=== PATIENT | male | born 1955 | race Caucasian/White ===

== ENCOUNTER 2022-09-11 01:56 | Emergency (ER) | payer MEDICARE ==
[2022-09-11 02:04] VITALS: BP 147/90; PULSE 98; RESP 18; TEMP 97.7
--- NOTE | 2022-09-11 02:43 | CT ---
EXAM: CT Head Without Intravenous Contrast CLINICAL HISTORY: ITS.REASON CT Reason: trauma TECHNIQUE: Axial computed tomography images of the head/brain without intravenous contrast. CTDI is 45.2 mGy and DLP is 1163.7 mGy-cm. This CT exam was performed using one or more of the following dose reduction techniques: automated exposure control, adjustment of the mA and/or kV according to patient size, and/or use of iterative reconstruction technique. COMPARISON: No previous studies. FINDINGS: Artifacts: Motion artifact limits evaluation. Brain: Age-related atrophy and small vessel disease of aging. No hemorrhage. No abnormal extra-axial collection is noted. Midline shift: Midline anatomy is unremarkable. Ventricles: Unremarkable. No ventriculomegaly. Bones/joints: Calvarium is within normal limits. No acute fracture. Soft tissues: A 6.5 x 1.1 cm right parietal scalp hematoma is noted. Sinuses: Mild chronic ethmoid sinusitis. Mastoid air cells: Mastoid air cells are well pneumatized. IMPRESSION: 1. Right parietal scalp hematoma. 2. Age-related atrophy. 3. No acute intracranial pathology. 4. If there is concern for etiology such as early acute lacunar infarct, MRI imaging of the brain with diffusion-weighted sequences should be performed. EXAM: CT Cervical Spine Without Intravenous Contrast CLINICAL HISTORY: ITS.REASON CT Reason: trauma TECHNIQUE: Axial computed tomography images of the cervical spine without intravenous contrast. CTDI is 15.3 mGy and DLP is 457.2 mGy-cm. This CT exam was performed using one or more of the following dose reduction techniques: automated exposure control, adjustment of the mA and/or kV according to patient size, and/or use of iterative reconstruction technique. COMPARISON: No previous studies. FINDINGS: Vertebrae: Dextroscoliosis. There is straightening and reversal of the curvature of the cervical spine suggestive of muscle spasm. There is minimal grade 1 anterolisthesis of C2 on C3 vertebrae. There is grade 1 retrolisthesis of C4 upon C5 vertebral body. There is grade 1 anterolisthesis of C5 on C6 vertebral body. Cervical and visualized thoracic vertebral bodies are unremarkable. Spinous processes are unremarkable. There is a normal relationship of C1 and C2. Transaxial images of the cervical spine reveals multilevel posterior facet hypertrophy and disc osteophyte complexes. No acute fracture. Discs/spinal canal/neural foramina: Moderate to severe degenerative disc disease. No spinal canal stenosis. Soft tissues: Paraspinal and regional soft tissues are unremarkable. Lung apices: Visualized upper lobes are unremarkable. IMPRESSION: 1. Advanced degenerative disc disease. 2. No acute injury to the cervical spine is detected. 3. Abnormal alignment of the cervical spine attributable to posterior facet hypertrophy.
--- NOTE | 2022-09-11 02:52 | ED ---
General Adult HPI - General Chief complaint: Fall Stated complaint: Fall, ETOH Time Seen by Provider: 09/11/22 01:58 Source: patient, EMS, RN notes reviewed, old records reviewed Mode of arrival: EMS Limitations: no limitations - History of Present Illness Initial comments: 66-year-old male presents for alcohol intoxication, fall. No loss consciousness . No anticoagulation. Patient was brought in by paramedics, placed in c-collar for precautions. He had [place] outside of a local bar. There was bleeding noted to the posterior scalp. Patient denies any complaints including no headache, no focal numbness or weakness. No chest pain or abdominal pain. No extremity injury. Review of Systems ROS Statement: Those systems with pertinent positive or pertinent negative responses have been documented in the HPI. ROS Other: All systems not noted in ROS Statement are negative. Past Medical History Past Medical History: No Reported History Past Surgical History: No Surgical Hx Reported General Exam Limitations: altered mental status General appearance: alert Head exam: Present: other (Right parietal occipital hematoma and 2 cm laceration) Eye exam: Present: normal appearance, PERRL Neck exam: Present: normal inspection, other (C-collar placed by paramedics). Absent: tenderness, meningismus Respiratory exam: Present: normal lung sounds bilaterally, respiratory distress Cardiovascular Exam: Present: regular rate, normal rhythm GI/Abdominal exam: Present: soft. Absent: distended, tenderness, guarding Extremities exam: Present: normal inspection, normal capillary refill Course Vital Signs 09/11/22 01:59 Temperature 97.7 F Pulse Rate 98 Respiratory 18 Rate Blood Pressure 147/90 O2 Sat by Pulse 96 Oximetry - Reevaluation(s) Reevaluation #1: 09/11/22 03:25 Patient discharged with a friend. He is not driving. Procedures - Laceration Laceration #1 Consent Obtained: verbal consent Indication: laceration Site: scalp Size (cm): 2 Description: linear Pre-repair: wound explored, deep structures intact Type of Sutures: other (manuel) Number of Sutures: 3 Technique: simple, interrupted Patient Tolerated Procedure: well Medical Decision Making - Medical Decision Making Was pt. sent in by a medical professional or institution (, PA, INTERSTATE BUS DISPATCHER, urgent care, hospital, or [place] [facility] facility...) When possible be specific @ -[No] Did you speak to anyone other than the patient for history (EMS, parent, family, police, friend...)? What history was obtained from this source @ -Paramedics Did you review nursing and triage notes (agree or disagree)? Why? @ -[I reviewed and agree with nursing and triage notes] Were old charts reviewed (outside hosp., previous admission, EMS record, old EKG, old radiological studies, urgent care reports/EKG's, [place] [facility] facility records)? Report findings @ -[No old charts were reviewed] Differential Diagnosis (chest pain, altered mental status, abdominal pain women, abdominal pain men, vaginal bleeding, weakness, fever, dyspnea, syncope, headache, dizziness, GI bleed, back pain, seizure, CVA, palpatations, mental health, musculoskeletal)? @ -Intracranial hemorrhage, cervical spine fracture subluxation, concussion, EKG interpreted by me (3pts min.). @ -[As above] X-rays interpreted by me (1pt min.). @ -[None done] CT interpreted by me (1pt min.). @ -CT performed of the brain and cervical spine, negative for traumatic injury U/S interpreted by me (1pt. min.). @ -[None done] What testing was considered but not performed or refused? (CT, X-rays, U/S, labs)? Why? @ -[None] What meds were considered but not given or refused? Why? @ -[None] Did you discuss the management of the patient with other professionals (professionals i.e. , PA, INTERSTATE BUS DISPATCHER, lab, RT, psych nurse, medical social consultant, asphalt paving machine operator, teacher, civil preparedness officer, family independence case manager)? Give summary @ -[No] Was smoking cessation discussed for >3mins.? @ -[No] Was critical care preformed (if so, how long)? @ -[No] Were there social determinants of health that impacted care today? How? (Homelessness, low income, unemployed, alcoholism, drug addiction, transportation, low edu. Level, literacy, decrease access to med. care, long term, rehab)? @ -Alcoholism Was there de-escalation of care discussed even if they declined (Discuss DNR or withdrawal of care, Hospice)? DNR status @ -[No] What co-morbidities impacted this encounter? (DM, HTN, Smoking, COPD, CAD, Cancer, CVA, ARF, Chemo, Hep., AIDS, mental health diagnosis, sleep apnea, morbid obesity)? @ -[None] Was patient admitted / discharged? Hospital course, mention meds given and route, prescriptions, significant lab abnormalities, going to OR and other pertinent info. @ -60 sexual male with acute alcohol intoxication, head injury, scalp laceration. CT negative, scalp laceration repaired with 3 manuel. Discharged with a friend. Stable condition Undiagnosed new problem with uncertain prognosis? @ -[No] Drug Therapy requiring intensive monitoring for toxicity (Heparin, Nitro, Insulin, Cardizem)? @ -[No] Were any procedures done? @ -Yes, laceration repaired Diagnosis/symptom? @ -Concussion, scalp laceration, alcohol intoxication Acute, or Chronic, or Acute on Chronic? @ -Acute Uncomplicated (without systemic symptoms) or Complicated (systemic symptoms)? @ -Complicated Side effects of treatment? @ -[No] Exacerbation, Progression, or Severe Exacerbation? @ -[No] Poses a threat to life or bodily function? How? (Chest pain, [place], [place], pneumonia, PE, COPD, DKA, ARF, appy, cholecystitis, CVA, Diverticulitis, Homicidal, Suicidal, threat to staff... and all critical care pts) @ -[No] Disposition Clinical Impression: Fall, Alcohol intoxication, Scalp laceration, Concussion Disposition: HOME SELF-CARE Condition: Fair Instructions (If sedation given, give patient instructions): Laceration (ED), Concussion (ED), Fall Prevention for Older Adults (ED) Additional Instructions: Please return for staple removal in 10 days Is patient prescribed a controlled substance at d/c from ED?: No Referrals: None,Stated [Primary Care Provider] - 1-2 days Michell Thurston MD [REFERRING] - 1-2 days Time of Disposition: 02:51
== END 2022-09-11 03:49 | disposition home or self-care (01) ==
LOC: EC 01:56
DX: S01.01XA Laceration without foreign body of scalp, initial encounter (principal); F10.129 Alcohol abuse with intoxication, unspecified; W18.30XA Fall on same level, unspecified, initial encounter
CPT/HCPCS: 12001; 70450; 72125; 99284

== ENCOUNTER 2022-09-11 05:19 | Emergency (ER) | payer MEDICARE ==
[2022-09-11] MEDS ORDERED: SODIUM CHLORIDE 0.9% 1,000 ML IV ONE ×2 (05:21→05:41)
[2022-09-11 05:24] VITALS: RESP 18; TEMP 98.4
[2022-09-11 05:27] LABS: Glucose,Whole Blood 117 mg/dL (70-110)
[2022-09-11] MEDS ORDERED: DEXAMETHASONE SOD PHOSPHATE 10 MG/ML 1 ML VIAL IV STA (05:57)
--- NOTE | 2022-09-11 05:57 | CT ---
EXAMINATION TYPE: CT brain dejan andrews DATE OF EXAM: 09/11/2022 COMPARISON: Trauma CT earlier today HISTORY: Altered mental status and confusion with neck pain. Recent trauma. CT DLP: 556 mGycm. Automated Exposure Control for Dose Reduction was Utilized. TECHNIQUE: CT scan of the head and cervical spine are performed without contrast. FINDINGS: There is no acute intracranial hemorrhage or midline shift identified. Mild/moderate vent ricular and sulcal prominence redemonstrated. Mild low attenuation in the periventricular white matte r redemonstrated. The calvarium is intact. The globes are intact and the visualized sinuses are clear . Persistent small right parietal scalp hematoma with laceration and/or overlying skin manuel. Cervical spine is visualized in its entirety from C1 through upper thoracic levels and redemonstrates grade 1 retrolisthesis C3 on C4 and C4 on C5 along with grade 1 anterolisthesis C5 on C6. Preverteb ral soft tissue remains within normal limits. The C1-C2 articulation remains within normal limits on the coronal images. Multilevel effacement of the spinal canal is greatest posterior inferior C4 and anterior superior C6 levels due to most prominent spondylolisthesis at these levels similar to prior. Axial images show multilevel uncovertebral facet degenerative changes contributing to multilevel yariel ateral neural foraminal narrowing. Lung apices show some emphysematous change without pneumothorax. IMPRESSION: 1. There is no acute fracture or dislocation evident in the cervical spine. Multilevel spondylolisthe sis and degenerative change redemonstrated. 2. No acute intracranial hemorrhage or midline shift is seen. Atrophy and chronic small vessel ischem ic change along with right parietal scalp hematoma all redemonstrated. No significant change from CT earlier today.
--- NOTE | 2022-09-11 05:58 | XR ---
EXAMINATION TYPE: XR chest 1V DATE OF EXAM: 09/11/2022 COMPARISON: NONE HISTORY: Altered mental status and weakness. Recent fall injury. TECHNIQUE: Single frontal view of the chest is obtained. FINDINGS: Cardiomegaly is seen. There is possible mild central vascular congestion with increased ma rkings. Though suspicious focal airspace opacity, pleural effusion, or pneumothorax. The osseous str uctures are intact. Overlying EKG leads are present. IMPRESSION: Cardiomegaly with perhaps mild central vascular congestion. Correlate clinically.
--- NOTE | 2022-09-11 06:03 | CT ---
EXAMINATION TYPE: CT angio head neck DATE OF EXAM: 09/11/2022 HISTORY: Altered mental status. Acute onset neurologic deficit. Trauma injury. COMPARISON: None CT DLP: 646.3 mGycm. Automated Exposure Control for Dose Reduction was Utilized. TECHNIQUE: CTA scan of the head and neck is performed without and with IV Contrast, patient injected with 65 mL of Isovue 370, axial images are obtained, coronal and sagittal reformatted images are rev iewed. 3D reconstructed images are created on an independent workstation and reviewed. FINDINGS: Carotid/Vascular Structures: No significant stenosis at the aortic arch level. Normal origin right co mmon carotid artery from right brachiocephalic artery. No significant plaque or stenosis along the co mmon carotid arteries bilaterally. Some artifact near the left carotid bulb from Nearby mandibular ca vitary fillings and crowns. No obvious significant plaque or stenosis at either carotid bulb or proxi mal internal carotid artery. Patent external carotid arteries bilaterally without significant stenosi s. Vertebral arteries are codominant and patent to the basilar junction. There are hypoplastic bilateral posterior communicating arteries. There is no significant focal stenosis or aneurysm in the posterio r circulation. Anterior circulation shows mild to moderate peripheral plaque in the distal internal c arotid arteries. No significant stenosis. There is patent anterior communicating artery. There is no significant focal stenosis or aneurysm in the anterior circulation. Other: No additional significant finding. IMPRESSION: No significant abnormality is seen. NASCET criteria was used in interpretation of this exam?
[2022-09-11 06:07] LABS: Basophils % (A) 0 %; Eosinophils # (A) 0.1 k/uL (0-0.7); Eosinophils % (A) 0 %; HCT 41.7 % (39.0-53.0); HGB 14.4 gm/dL (13.0-17.5); Lymphocytes # (A) 0.9 k/uL (1.0-4.8); Lymphocytes % (A) 7 %; MCH 32.1 pg (25.0-35.0); MCHC 34.6 g/dL (31.0-37.0); MCV 92.7 fL (80.0-100.0); Mean Platelet Volume 6.7; Monocytes # (A) 0.7 k/uL (0-1.0); Monocytes % (A) 5 %; Neutrophils # (A) 11.7 k/uL (1.3-7.7); Neutrophils % (A) 87 %; Platelet Count 277 k/uL (150-450); RBC 4.49 m/uL (4.30-5.90); RDW 12.3 % (11.5-15.5); WBC 13.4 k/uL (3.8-10.6)
[2022-09-11 06:23] LABS: Calcium 8.4 mg/dL (8.4-10.2); INR 1.1 (<1.2); Magnesium 1.9 mg/dL (1.6-2.3); Potassium 3.9 mmol/L (3.5-5.1); Prothrombin Time 11.2 sec (9.0-12.0); Total Bilirubin 0.5 mg/dL (0.2-1.3); Total Protein 6.5 g/dL (6.3-8.2)
--- NOTE | 2022-09-11 06:28 | ED ---
General Adult HPI - General Chief complaint: Altered Mental Status Stated complaint: AMS Time Seen by Provider: 09/11/22 05:20 Source: patient, EMS, RN notes reviewed, old records reviewed Mode of arrival: EMS Limitations: altered mental status - History of Present Illness Initial comments: 66 male presents with altered level consciousness, inability to stand, hypotension. Patient had been seen earlier in the evening around 2 AM for alcohol intoxication and fall with head injury. He was seen by myself at that time. He had undergone CT imaging of the brain and cervical spine. He had stable vitals. He had a nonfocal neurologic exam. He was intoxicated but he was alert and oriented 4. He was discharged with a friend in stable condition. He returned around 6 AM after paramedics were called to the house for altered level of consciousness and inability to stand. He was hypotensive in the 60s by paramedics. He was not moving either leg or his left arm. The circumstances between the time of leaving the emergency department and packing up the patient second time are not known. - Related Data Allergies Allergy/AdvReac Type Severity Reaction Status Date / Time No Known Allergies Allergy Verified 09/11/22 05:43 Review of Systems ROS Statement: Those systems with pertinent positive or pertinent negative responses have been documented in the HPI. ROS Other: All systems not noted in ROS Statement are negative. Past Medical History Past Medical History: No Reported History Past Surgical History: No Surgical Hx Reported General Exam Limitations: altered mental status General appearance: lethargic Head exam: Present: other (Right parieto-occipital laceration status post repair) Eye exam: Present: PERRL ENT exam: Present: mucous membranes dry Neck exam: Present: other (C-spine precautions maintained. c-collar placed) Respiratory exam: Present: normal lung sounds bilaterally. Absent: respiratory distress Cardiovascular Exam: Present: regular rate, normal rhythm GI/Abdominal exam: Present: soft. Absent: distended, tenderness Extremities exam: Present: normal inspection, normal capillary refill Neurological exam: Present: other (Patient altered, will withdraw to pain on the right, no movement on the left. No movement on the bilateral lower extremities) Skin exam: Present: warm, dry, pallor Course Vital Signs 09/11/22 09/11/22 09/11/22 05:20 05:49 05:54 Temperature 98.4 F Pulse Rate 70 Respiratory 18 Rate Blood Pressure 108/88 108/94 128/63 O2 Sat by Pulse 95 Oximetry 09/11/22 07:45 Temperature 98.4 F Pulse Rate 106 H Respiratory 18 Rate Blood Pressure 122/60 O2 Sat by Pulse 97 Oximetry - Reevaluation(s) Reevaluation #1: 09/11/22 06:51 Repeat neuro exam, patient is moving bilateral lower extremities. He has movement in the left upper extremity which is improved but still quite weak. 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 Pressure improved to 120 systolic. 09/11/22 06:56 Case discussed with neurosurgery at [facility] EKG Findings - EKG Comments: EKG Findings:: EKG: Sinus rhythm rate of 72, NC interval 174, QRS duration 101, QTC 423 Medical Decision Making - Medical Decision Making 66-year-old male who presents with altered level consciousness, hypotension, and focal neurologic findings. Patient had been seen 2 hours prior and evaluated for head injury status post fall. CT imaging of the brain and cervical spine. There was no intracranial hemorrhage. There was no traumatic injury identified in the cervical spine. The patient had stable vitals and nonfocal exam at that time. A code stroke was activated given these new neuro deficits. Patient was taken immediately for CT brain and cervical spine without contrast and CT angiogram. I discussed case at the time of presentation with Dr. Walter covering for stroke intervention. Given the unclear onset and the possibility of dizziness or other neurological complaints in the setting of alcohol intoxication. [place] that this patient would not be a TPA candidate. Again the patient had head trauma and Dr. Walter felt that there may be a small intracranial hemorrhage. Not a TPA candidate. No large intracranial hemorrhage identified on my review of imaging. Patient has initially no movement in the left upper extremity and no movement in the bilateral lower extremities. He has normal strength in the right upper extremity. Blood pressure does respond to normal saline. Repeat CT of the brain is negative for intracranial hemorrhage. Repeat imaging of the cervical spine does reveal a subluxation C5 on C6 which is new compared to previous CT. this was seen by myself and radiology was able to add addendum to the report. Discussed case with the trauma team, Dr. Dong, and the ER physician Dr. Mullins at [facility] who will accept. Was pt. sent in by a medical professional or institution (, PA, [employer], urgent care, hospital, or senior care...) When possible be specific @ -[No] Did you speak to anyone other than the patient for history (EMS, parent, family, police, friend...)? What history was obtained from this source @ -[Paramedics Did you review nursing and triage notes (agree or disagree)? Why? @ -[I reviewed and agree with nursing and triage notes] Were old charts reviewed (outside hosp., previous admission, EMS record, old EKG, old radiological studies, urgent care reports/EKG's, senior care records)? Report findings @ -[No Differential Diagnosis (chest pain, altered mental status, abdominal pain women, abdominal pain men, vaginal bleeding, weakness, fever, dyspnea, syncope, headache, dizziness, GI bleed, back pain, seizure, CVA, palpatations, mental health, musculoskeletal)? @ -[Differential Altered Mental Status: Hypoglycemia, DKA, hypercapnia, ETOH, overdose, CO poisoning, trauma, myxedema coma, HTN encephalopathy, infection, encephalitis, psychosis, intercranial hemorrhage, hepatic encephalopathy, meningitis, CVA, this is not meant to be an all-inclusive list] EKG interpreted by me (3pts min.). @ -[As above] X-rays interpreted by me (1pt min.). @ -None] CT interpreted by me (1pt min.). @ -[CT reviewed of the brain and cervical spine without contrast. Subluxation without fracture of C5 on C6 no intracranial hemorrhage.] U/S interpreted by me (1pt. min.). @ -[None done] What testing was considered but not performed or refused? (CT, X-rays, U/S, labs)? Why? @ -[None] What meds were considered but not given or refused? Why? @ -[None] Did you discuss the management of the patient with other professionals (professionals i.e. , PA, [employer], lab, RT, psych nurse, oncology social work, speed reading teacher, teacher, philanthropy officer, keycase assembler)? Give summary @ -[Case discussed with physicians from transferring facility [facility] Was smoking cessation discussed for >3mins.? @ -[No] Was critical care preformed (if so, how long)? @ -[yes] Were there social determinants of health that impacted care today? How? (Homelessness, low income, unemployed, alcoholism, drug addiction, transportatio n, low edu. Level, literacy, decrease access to med. care, care home, rehab)? @ -[No] Was there de-escalation of care discussed even if they declined (Discuss DNR or withdrawal of care, Hospice)? DNR status @ -[No] What co-morbidities impacted this encounter? (DM, HTN, Smoking, COPD, CAD, Cancer, CVA, ARF, Chemo, Hep., AIDS, mental health diagnosis, sleep apnea, morbid obesity)? @ -[Alcohol use] Was patient admitted / discharged? Hospital course, mention meds given and route, prescriptions, significant lab abnormalities, going to OR and other pertinent info. @ -[See above] Undiagnosed new problem with uncertain prognosis? @ -[No] Drug Therapy requiring intensive monitoring for toxicity (Heparin, Nitro, In sulin, Cardizem)? @ -[No] Were any procedures done? @ -[No] Diagnosis/symptom? @ -[Concern for spinal cord injury, unstable cervical spine, alcohol intoxication, hypotension.] Acute, or Chronic, or Acute on Chronic? @ -[Acute] Uncomplicated (without systemic symptoms) or Complicated (systemic symptoms)? @ -[Complicated] Side effects of treatment? @ -[No] Exacerbation, Progression, or Severe Exacerbation? @ -[No] Poses a threat to life or bodily function? How? (Chest pain, [place], [place], pneumonia, PE, COPD, DKA, ARF, appy, cholecystitis, CVA, Diverticulitis, Homicidal, Suicidal, threat to staff... and all critical care pts) @ -[Yes, neurogenic shock,] - Lab Data Result diagrams: 09/11/22 05:30 09/11/22 05:30 Lab Results 09/11/22 09/11/22 09/11/22 Range/Units 05:25 05:30 05:30 WBC 13.4 H (3.8-10.6) k/uL RBC 4.49 (4.30-5.90) m/uL Hgb 14.4 (13.0-17.5) gm/dL Hct 41.7 (39.0-53.0) % MCV 92.7 (80.0-100.0) fL MCH 32.1 (25.0-35.0) pg MCHC 34.6 (31.0-37.0) g/dL RDW 12.3 (11.5-15.5) % Plt Count 277 (150-450) k/uL MPV 6.7 Neutrophils % 87 % Lymphocytes % 7 % Monocytes % 5 % Eosinophils % 0 % Basophils % 0 % Neutrophils # 11.7 H (1.3-7.7) k/uL Lymphocytes # 0.9 L (1.0-4.8) k/uL Monocytes # 0.7 (0-1.0) k/uL Eosinophils # 0.1 (0-0.7) k/uL Basophils # 0.0 (0-0.2) k/uL PT 11.2 (9.0-12.0) sec INR 1.1 (<1.2) APTT 20.9 L (22.0-30.0) sec Sodium (137-145) mmol/L Potassium (3.5-5.1) mmol/L Chloride (98-107) mmol/L Carbon Dioxide (22-30) mmol/L Anion Gap mmol/L BUN (9-20) mg/dL Creatinine (0.66-1.25) mg/dL Est GFR (CKD-EPI)AfAm (>60 ml/min/1.73 sqM) Est GFR (CKD-EPI)NonAf (>60 ml/min/1.73 sqM) Glucose (74-99) mg/dL POC Glucose (mg/dL) 117 H (70-110) mg/dL POC Glu Health Care Sanitary Technician ID Amado Clarke Lactic Ac Sepsis Rflx Plasma Lactic Acid Jona (0.7-2.0) mmol/L Calcium (8.4-10.2) mg/dL Magnesium (1.6-2.3) mg/dL Total Bilirubin (0.2-1.3) mg/dL AST (17-59) U/L ALT (4-49) U/L Alkaline Phosphatase (38-126) U/L Troponin I (0.000-0.034) ng/mL Total Protein (6.3-8.2) g/dL Albumin (3.5-5.0) g/dL Urine Opiates Screen (NotDetected) Ur Oxycodone Screen (NotDetected) Urine Methadone Screen (NotDetected) Ur Propoxyphene Screen (NotDetected) Ur Barbiturates Screen (NotDetected) U Tricyclic Antidepress (NotDetected) Ur Phencyclidine Scrn (NotDetected) Ur Amphetamines Screen (NotDetected) U Methamphetamines Scrn (NotDetected) U Benzodiazepines Scrn (NotDetected) Urine Cocaine Screen (NotDetected) U Marijuana (THC) Screen (NotDetected) Serum Alcohol mg/dL 09/11/22 09/11/22 09/11/22 Range/Units 05:30 05:30 05:30 WBC (3.8-10.6) k/uL RBC (4.30-5.90) m/uL Hgb (13.0-17.5) gm/dL Hct (39.0-53.0) % MCV (80.0-100.0) fL MCH (25.0-35.0) pg MCHC (31.0-37.0) g/dL RDW (11.5-15.5) % Plt Count (150-450) k/uL MPV Neutrophils % % Lymphocytes % % Monocytes % % Eosinophils % % Basophils % % Neutrophils # (1.3-7.7) k/uL Lymphocytes # (1.0-4.8) k/uL Monocytes # (0-1.0) k/uL Eosinophils # (0-0.7) k/uL Basophils # (0-0.2) k/uL PT (9.0-12.0) sec INR (<1.2) APTT (22.0-30.0) sec Sodium 140 (137-145) mmol/L Potassium 3.9 (3.5-5.1) mmol/L Chloride 110 H (98-107) mmol/L Carbon Dioxide 16 L (22-30) mmol/L Anion Gap 14 mmol/L BUN 13 (9-20) mg/dL Creatinine 1.19 (0.66-1.25) mg/dL Est GFR (CKD-EPI)AfAm 73 (>60 ml/min/1.73 sqM) Est GFR (CKD-EPI)NonAf 63 (>60 ml/min/1.73 sqM) Glucose 123 H (74-99) mg/dL POC Glucose (mg/dL) (70-110) mg/dL POC Glu Health Care Sanitary Technician ID Lactic Ac Sepsis Rflx Plasma Lactic Acid Jona 4.4 H* (0.7-2.0) mmol/L Calcium 8.4 (8.4-10.2) mg/dL Magnesium 1.9 (1.6-2.3) mg/dL Total Bilirubin 0.5 (0.2-1.3) mg/dL AST 68 H (17-59) U/L ALT 38 (4-49) U/L Alkaline Phosphatase 50 (38-126) U/L Troponin I <0.012 (0.000-0.034) ng/mL Total Protein 6.5 (6.3-8.2) g/dL Albumin 4.0 (3.5-5.0) g/dL Urine Opiates Screen (NotDetected) Ur Oxycodone Screen (NotDetected) Urine Methadone Screen (NotDetected) Ur Propoxyphene Screen (NotDetected) Ur Barbiturates Screen (NotDetected) U Tricyclic Antidepress (NotDetected) Ur Phencyclidine Scrn (NotDetected) Ur Amphetamines Screen (NotDetected) U Methamphetamines Scrn (NotDetected) U Benzodiazepines Scrn (NotDetected) Urine Cocaine Screen (NotDetected) U Marijuana (THC) Screen (NotDetected) Serum Alcohol 147 mg/dL 09/11/22 09/11/22 Range/Units 06:33 07:40 WBC (3.8-10.6) k/uL RBC (4.30-5.90) m/uL Hgb (13.0-17.5) gm/dL Hct (39.0-53.0) % MCV (80.0-100.0) fL MCH (25.0-35.0) pg MCHC (31.0-37.0) g/dL RDW (11.5-15.5) % Plt Count (150-450) k/uL MPV Neutrophils % % Lymphocytes % % Monocytes % % Eosinophils % % Basophils % % Neutrophils # (1.3-7.7) k/uL Lymphocytes # (1.0-4.8) k/uL Monocytes # (0-1.0) k/uL Eosinophils # (0-0.7) k/uL Basophils # (0-0.2) k/uL PT (9.0-12.0) sec INR (<1.2) APTT (22.0-30.0) sec Sodium (137-145) mmol/L Potassium (3.5-5.1) mmol/L Chloride (98-107) mmol/L Carbon Dioxide (22-30) mmol/L Anion Gap mmol/L BUN (9-20) mg/dL Creatinine (0.66-1.25) mg/dL Est GFR (CKD-EPI)AfAm (>60 ml/min/1.73 sqM) Est GFR (CKD-EPI)NonAf (>60 ml/min/1.73 sqM) Glucose (74-99) mg/dL POC Glucose (mg/dL) (70-110) mg/dL POC Glu Health Care Sanitary Technician ID Lactic Ac Sepsis Rflx Y Plasma Lactic Acid Jona (0.7-2.0) mmol/L Calcium (8.4-10.2) mg/dL Magnesium (1.6-2.3) mg/dL Total Bilirubin (0.2-1.3) mg/dL AST (17-59) U/L ALT (4-49) U/L Alkaline Phosphatase (38-126) U/L Troponin I (0.000-0.034) ng/mL Total Protein (6.3-8.2) g/dL Albumin (3.5-5.0) g/dL Urine Opiates Screen Not Detected (NotDetected) Ur Oxycodone Screen Not Detected (NotDetected) Urine Methadone Screen Not Detected (NotDetected) Ur Propoxyphene Screen Not Detected (NotDetected) Ur Barbiturates Screen Not Detected (NotDetected) U Tricyclic Antidepress Not Detected (NotDetected) Ur Phencyclidine Scrn Not Detected (NotDetected) Ur Amphetamines Screen Not Detected (NotDetected) U Methamphetamines Scrn Not Detected (NotDetected) U Benzodiazepines Scrn Not Detected (NotDetected) Urine Cocaine Screen Not Detected (NotDetected) U Marijuana (THC) Screen Not Detected (NotDetected) Serum Alcohol mg/dL Critical Care Time Critical Care Time: Yes Total Critical Care Time: 35 Disposition Clinical Impression: Delirium due to general medical condition, Alcohol intoxication, Cervical spine instability, Subluxation complex (vertebral) of cervical region Disposition: OTHER INSTITUTION NOT DEFINED Condition: Serious Is patient prescribed a controlled substance at d/c from ED?: No Referrals: None,Stated [Primary Care Provider] - 1-2 days Time of Disposition: 06:50 - Out of Hospital Transfer - Req. Specs Out of Hospital Transfer - Requested Specifics: Other Emergency Center ([facility])
[2022-09-11 06:59] LABS: Partial Thromboplastin Time 20.9 sec (22.0-30.0)
[2022-09-11 07:46] VITALS: BP 122/60; PULSE 106
[2022-09-11 08:11] LABS: Amphetamine Screen,Urine Not Detected (NotDetected); Barbiturate Screen,Urine Not Detected (NotDetected); Benzodiazepines Screen,Urine Not Detected (NotDetected); Cocaine Screen,Urine Not Detected (NotDetected); Methadone Screen, Urine Not Detected (NotDetected); Opiate Screen,Urine Not Detected (NotDetected); Oxycodone Screen, Urine Not Detected (NotDetected); Phencyclidine Screen,Urine Not Detected (NotDetected); Tricyclic Antidepressant,Urine Not Detected (NotDetected); Urn Cannabinoid Scrn Not Detected (NotDetected)
== END 2022-09-11 07:45 | disposition other institution (70) ==
LOC: EC 05:19
DX: S00.03XA Contusion of scalp, initial encounter (principal); F05 Delirium due to known physiological condition; F10.129 Alcohol abuse with intoxication, unspecified; M53.2X2 Spinal instabilities, cervical region; M99.11 Subluxation complex (vertebral) of cervical region; I67.82 Cerebral ischemia; X58.XXXA Exposure to other specified factors, initial encounter
CPT/HCPCS: 36415; 93005; 80053; 83605; 83735; 84484; 85025; 85610; 85730; 80306; 71045; 72125; 70496; 70450; 70498; 99291; 96374; 96361; G0480; J1100; Q9967; 80320

== ENCOUNTER → 2022-12-28 | Outpatient (CLI) | payer MEDICARE ==
--- NOTE | 2022-12-28 15:31 | US ---
EXAMINATION TYPE: US venous doppler duplex LE DATE OF EXAM: 12/28/2022 3:07 PM COMPARISON: NONE CLINICAL INDICATION: Male, 67 years old with history of I80.9 PHLEBITIS AND THROMBOPHLEBITIS; rt lowe r leg pain and swelling x several months SIDE PERFORMED: Bilateral TECHNIQUE: The lower extremity deep venous system is examined utilizing real time linear array sonog gail with graded compression, doppler sonography and color-flow sonography. VESSELS IMAGED: Common Femoral Vein Deep Femoral Vein Greater Saphenous Vein * Femoral Vein Popliteal Vein Small Saphenous Vein * Proximal Calf Veins (* superficial vessels) Right Leg: Negative for DVT. Moderate subcutaneous edema noted in post calf. Large but benign-appear ing lymph node in the right inguinal region measuring up to 4 cm long axis. Left Leg: Negative for DVT. Small to moderate-sized, mildly complex Willams's cyst measuring 4.5x1.4x2 .1cm. IMPRESSION: 1. No evidence for DVT within the bilateral lower extremities imaged from the groin to the upper calf . 2. Some subcutaneous soft tissue swelling at the right calf. Benign-appearing reactive lymph nodes in the right inguinal region incidentally noted. 3. Small to moderate-sized 4.5 cm Willams cyst on the left.
== END | disposition home or self-care (01) ==
LOC: RADUSWWP 13:59
PROVIDERS: ATTEND Orthopaedic Surgery
DX: I80.9 Phlebitis and thrombophlebitis of unspecified site (principal); M71.22 Synovial cyst of popliteal space [Baker], left knee; R59.0 Localized enlarged lymph nodes
CPT/HCPCS: 93970

== ENCOUNTER → 2023-07-11 | Outpatient (CLI) | payer MEDICARE ==
--- NOTE | 2023-07-11 17:08 | CT ---
EXAMINATION TYPE: CT right knee - [facility] Protocol DATE OF EXAM: 07/11/2023 COMPARISON: None HISTORY: M25.561 PAIN IN RIGHT KNEE Unenhanced CT of the right knee for [facility] protocol. Imaging is obtained throughout the right lower ex tremity from the hip through the ankle. Mild degenerative narrowing right hip joint space. No fracture or bony lesion. Severe degenerative na rrowing involving the medial and lateral tibiofemoral joint spaces as well as the patellofemoral join t space. Subchondral sclerosis as well as marginal bony spurring. The right ankle is intact. IMPRESSION: OSTEOARTHRITIS
== END | disposition home or self-care (01) ==
LOC: RADCTMAIN 15:56
PROVIDERS: ATTEND Orthopaedic Surgery
DX: M17.11 Unilateral primary osteoarthritis, right knee (principal)

== ENCOUNTER → 2023-08-08 | Outpatient (CLI) | payer MEDICARE ==
--- NOTE | 2023-08-08 13:27 | US ---
EXAMINATION TYPE: US venous doppler duplex LE RT DATE OF EXAM: 08/08/2023 1:07 PM COMPARISON: NONE CLINICAL INDICATION: Male, 67 years old with history of I80.9 PHLEBITIS THROMBOPHLEBITIS; Knee operat ion 07/26, pain and swelling SIDE PERFORMED: Right TECHNIQUE: The lower extremity deep venous system is examined utilizing real time linear array sonog gail with graded compression, doppler sonography and color-flow sonography. VESSELS IMAGED: Common Femoral Vein Deep Femoral Vein Greater Saphenous Vein * Femoral Vein Popliteal Vein Small Saphenous Vein * Proximal Calf Veins (* superficial vessels) Right Leg: Negative for DVT no DVT seen, 5.5x3.0x1.4cm fluid collection noted at the posterior medial knee exam limited by edema results communicated to Mi at office IMPRESSION: 1. Right lower extremity ultrasound negative for deep venous thrombosis. 2. Right popliteal cyst
== END | disposition home or self-care (01) ==
LOC: RADUSWWP 12:23
PROVIDERS: ATTEND Orthopaedic Surgery
DX: M71.21 Synovial cyst of popliteal space [Baker], right knee (principal); I80.9 Phlebitis and thrombophlebitis of unspecified site; Z47.1 Aftercare following joint replacement surgery; Z96.653 Presence of artificial knee joint, bilateral